=== PATIENT | female | born 1945 | race Caucasian/White ===

== ENCOUNTER 2018-03-21 03:00 | Outpatient (CLI) | payer MEDICARE, OTHER | END 2018-03-21 03:01 | disposition EMS.NT | LOC: EMS 03:00 | PROVIDERS: ATTEND Surgery | DX: R07.81 Pleurodynia (principal) ==

== ENCOUNTER 2018-10-26 09:15 | Outpatient (CLI) | payer MEDICARE, OTHER | END 2018-10-26 09:16 | disposition home or self-care (01) | LOC: DI 09:15 | PROVIDERS: ATTEND Family Medicine | DX: I48.91 Unspecified atrial fibrillation (principal); I48.92 Unspecified atrial flutter; I35.0 Nonrheumatic aortic (valve) stenosis; I34.0 Nonrheumatic mitral (valve) insufficiency | CPT/HCPCS: 93306 ==

== ENCOUNTER 2018-12-23 15:00 | Outpatient (CLI) | payer MEDICARE, OTHER ==
[2018-12-23 15:34] LABS: CALCIUM 8.9 mg/dL (8.5-10.3); CREATININE 1.1 mg/dL (0.4-1.0)
== END 2018-12-23 15:01 | disposition home or self-care (01) ==
LOC: LAB 15:00
PROVIDERS: ATTEND Internal Medicine Interventional Cardiology
DX: I48.1 Persistent atrial fibrillation (principal)
CPT/HCPCS: 36415; 80048

== ENCOUNTER 2019-06-14 23:39 | Outpatient (CLI) | payer MEDICARE, OTHER | END 2019-06-14 23:40 | disposition critical access hospital (66) | LOC: EMS 23:39 | PROVIDERS: ATTEND Surgery | DX: R06.02 Shortness of breath (principal); L50.9 Urticaria, unspecified; R11.0 Nausea; R55 Syncope and collapse | CPT/HCPCS: A0425; A0427 ==

== ENCOUNTER 2019-06-15 00:14 | Emergency (ER) | payer MEDICARE, OTHER ==
[2019-06-15] MEDS ORDERED: FAMOTIDINE 20 MG/2 ML VIAL IVP STA (00:33)
--- NOTE | 2019-06-15 00:35 | ED Physician Documentation ---
History of Present Illness - Stated complaint Stated Complaint: ALLERGIC REACTION - Chief complaint Chief Complaint: Allergic Rx - History obtained from History obtained from: Patient - History of Present Illness Timing: Prior to arrival - Additonal information Additional information: This is a 74-year-old woman who presents with complaints that she had an jan rgic reaction to something that she is not sure what it was. Around 930 tonight she developed hives by 10:00 they were all over her body and her face started swelling she was short of breath she called the EMS about 20 minutes later they arrived and gave her 0.3 mg of epi subcu followed by 50 of Benadryl 125 mg of Solu-Medrol. Her facial swelling is improving and she is feeling a little bit better but still mildly nauseous and she feels very fatigued. She did take a Claritin tablet Just after the hives started. Patient does have a history of a similar reaction to shellfish exposure in the past and she did eat salmon tonight that was brought out of the grocery case at the store. Review of Systems Unable to obtain: Other (Acute presentation with anaphylaxis.) Constitutional: reports: Fatigue. denies: Fever Cardiac: denies: Chest pain / pressure Respiratory: reports: Dyspnea. denies: Cough GI: reports: Nausea. denies: Abdominal Pain Skin: reports: Rash (Extensive hives) PD PAST MEDICAL HISTORY - Present Medications Home Medications: Ambulatory Orders Medication Instructions Recorded Confirmed Cholecalciferol (Vitamin D3) 1,000 unit PO DAILY 06/15/19 06/15/19 [Vitamin D3] Epinephrine [Auvi-Q] 0.3 mg IJ ONCE PRN #2 auto.injct 06/15/19 Famotidine [Pepcid] 20 mg PO BID #10 tablet 06/15/19 Hydrocodone/Acetaminophen [Vicodin 1 each PO DAILY 06/15/19 06/15/19 5-300 mg Tablet] Melatonin 10 mg PO DAILY 06/15/19 06/15/19 Metoprolol Succinate [Toprol Xl] 12.5 mg PO DAILY 06/15/19 06/15/19 Pantoprazole [Protonix] 40 mg PO BID 06/15/19 06/15/19 Prazosin HCl 2 mg PO DAILY 06/15/19 06/15/19 Vitamin E 400 unit PO DAILY 06/15/19 06/15/19 buPROPion HCl [Bupropion HCl Sr] 200 mg PO DAILY 06/15/19 06/15/19 predniSONE [Prednisone] 60 mg PO DAILY #12 tablet 06/15/19 - Allergies Allergies/Adverse Reactions: Allergies Allergy/AdvReac Type Severity Reaction Status Date / Time shellfish derived Allergy Anaphylaxis Verified 06/15/19 00:32 PD ED PE NORMAL - Vitals Vital signs reviewed: Yes - General General: Alert and oriented X 3, No acute distress, Well developed/nourished - HEENT HEENT: Atraumatic, PERRL, Other (Her mucous membranes are very dry. Her bottom lip is very swollen and her eyelids are as well. Little facial edema that seems to have been improving per the EMS.) - Neck Neck: Supple, no meningeal sign - Cardiac Cardiac: RRR, No murmur - Respiratory Respiratory: No respiratory distress, Clear bilaterally - Abdomen Abdomen: Normal bowel sounds, Soft, Non tender - Derm Derm: Other (Hives scattered across her face arms chest and abdomen.) - Extremities Extremities: No edema - Neuro Neuro: Alert and oriented X 3, Other Results - Vitals Vitals: Vital Signs - 24 hr 06/15/19 06/15/19 06/15/19 00:12 00:31 00:53 Temperature 36.8 C Heart Rate 54 L 58 L 50 L Respiratory 22 12 16 Rate Blood Pressure 143/68 H 138/58 H O2 Saturation 99 97 97 06/15/19 06/15/19 06/15/19 01:23 01:53 02:23 Temperature Heart Rate 58 L 54 L 56 L Respiratory 15 15 17 Rate Blood Pressure 124/50 L 135/61 H 135/61 H O2 Saturation 96 94 95 06/15/19 06/15/19 03:00 03:30 Temperature Heart Rate 53 L 54 L Respiratory 14 14 Rate Blood Pressure 125/83 H 127/96 H O2 Saturation 94 95 Oxygen O2 Source Room air - Labs Labs: Laboratory Tests 06/15/19 06/15/19 00:44 00:44 WBC 14.4 H RBC 4.92 Hgb 15.1 Hct 47.3 H MCV 96.1 MCH 30.7 MCHC 31.9 L RDW 13.9 Plt Count 303 MPV 9.5 Neut # (Auto) 12.0 H Lymph # (Auto) 1.6 [place] # (Auto) 0.6 Eos # (Auto) 0.1 Baso # (Auto) 0.1 Absolute Nucleated RBC 0.00 Nucleated RBC % 0.0 Sodium 139 Potassium 4.6 Chloride 106 Carbon Dioxide 24 Anion Gap 9.0 BUN 29 H Creatinine 1.1 H Estimated GFR (MDRD) 49 L Glucose 137 H Calcium 8.5 PD MEDICAL DECISION MAKING - ED course Complexity details: d/w patient ED course: We went through an exhaustive catalog of her day-to-day trying to figure out what might of precipitated this and I think the most possible explanation is that the salmon she brought out of the grocery case was contaminated with shellfish as she is had a similar reaction to shellfish exposure in the past. 0351: Patient was sleeping. I checked in on her once after the Pepcid and she was improving. Now her lip is still little bit swollen but she hives are essentially gone. She does not feel short of breath or nauseous and she had no vomiting. Plan is to discharge her home. I went ahead and gave her her first dose of prednisone. She will be placed on prednisone for the next 4 days, instructed to use Benadryl every 6 hours for the next 48 hours as well as Pepcid twice a day. She is given a prescription for an EpiPen told to fill it as soon as possible and to be very cautious with the ingestion of anything that might of coming contact with shellfish in the future. Departure - Departure Disposition: 01 Home, Self Care Clinical Impression: Anaphylactic reaction Qualifiers: Encounter type: initial encounter Qualified Code(s): T78.2XXA - Anaphylactic shock, unspecified, initial encounter Condition: Good Instructions: ED Allergic Reaction General Other Follow-Up: Tima Boggs MD [Primary Care Provider] - Prescriptions: Epinephrine [Auvi-Q] 0.3 mg IJ ONCE PRN #2 auto.injct PRN Reason: Anaphylaxis Famotidine [Pepcid] 20 mg PO BID #10 tablet predniSONE [Prednisone] 60 mg PO DAILY #12 tablet Comments: Take the prednisone 3 tablets daily for the next 4 days. Take Benadryl 1 to 2 tablets every 6 hours [id number] for the next [address] operate machinery if taking that medication because it can make you sleepy. Take Pepcid twice a day as prescribed for the next 48 hours. You have a prescription for EpiPen if needed for further anaphylactic symptoms. You should keep a current, unexpired EpiPen with you at all times in the future. Make every effort to avoid any potential contact with shellfish products in the future. Follow-up with your primary care provider as needed.
[2019-06-15 00:49] LABS: BASOPHILS # (AUTO) 0.1 10^3/uL (0.0-0.1); BASOPHILS % (AUTO) 0.3 %; EOSINOPHILS # (AUTO) 0.1 10^3/uL (0.0-0.7); EOSINOPHILS % (AUTO) 0.8 %; HGB - HEMOGLOBIN 15.1 g/dL (12.0-16.0); LYMPHOCYTES # (AUTO) 1.6 10^3/uL (1.5-3.5); LYMPHOCYTES % (AUTO) 11.2 %; MEAN CORPUSCULAR HEMOGLOBIN 30.7 pg (27.0-31.0); MEAN CORPUSCULAR HGB CONC 31.9 g/dL (32.0-36.0); MEAN CORPUSCULAR VOLUME 96.1 fL (81.0-99.0); MEAN PLATELET VOLUME 9.5 fL (7.9-10.8); MONOCYTES # (AUTO) 0.6 10^3/uL (0.0-1.0); MONOCYTES % (AUTO) 3.8 %; NEUTROPHILS % (AUTO) 83.3 %; PLT - PLATELET COUNT 303 10^3/uL (130-450); RED BLOOD COUNT 4.92 10^6/uL (4.20-5.40); RED CELL DISTRIBUTION WIDTH 13.9 % (12.0-15.0); WHITE BLOOD COUNT 14.4 x10^3/uL (4.8-10.8)
[2019-06-15 00:57] LABS: CALCIUM 8.5 mg/dL (8.5-10.3); CREATININE 1.1 mg/dL (0.4-1.0)
[2019-06-15] MEDS ORDERED: predniSONE 20 MG TABLET PO STA (03:50)
[2019-06-15 04:08] VITALS: BP 153/78
== END 2019-06-15 05:40 | disposition home or self-care (01) ==
LOC: EDUNIT# → ED 00:14
DX: T78.2XXA Anaphylactic shock, unspecified, initial encounter (principal); X58.XXXA Exposure to other specified factors, initial encounter; Z91.013 Allergy to seafood
CPT/HCPCS: 36415; 80048; 85025; 96374; 99284; J7512

== ENCOUNTER 2021-08-22 00:43 | Outpatient (CLI) | payer MEDICARE, OTHER | END 2021-08-22 00:44 | disposition EMS.NT | LOC: EMS 00:43 | DX: R07.9 Chest pain, unspecified (principal) ==

== ENCOUNTER 2021-08-22 09:33 | Emergency (ER) | payer MEDICARE, OTHER ==
--- NOTE | 2021-08-22 10:07 | XRAY Report ---
PROCEDURE: Chest 1 View X-Ray INDICATIONS: Chest Pain TECHNIQUE: One view of the chest was acquired. COMPARISON: None. FINDINGS: SUPPORT DEVICES: None. LUNG/PLEURA: A 4.8 x 4.4 cm density projects over the left lower lung zone. The remaining lung zones well aerated. No pleural effusion or space-occupying pneumothorax. MEDIASTINUM: The cardiomediastinal silhouette is within normal limits. BONES/SOFT TISSUES: No acute abnormality. IMPRESSION: 1.Ovoid density projecting over the left lower lung zone, concerning for lung or soft tissue mass. Co nsider CT imaging for further evaluation. Reviewed by: Fausto Urrutia MD on 08/22/2021 10:06 AM PDT Approved by: Fausto Urrutia MD on 08/22/2021 10:06 AM PDT Station ID: [id number]
[2021-08-22 10:11] LABS: BASOPHILS # (AUTO) 0.1 10^3/uL (0.0-0.1); BASOPHILS % (AUTO) 0.6 %; EOSINOPHILS # (AUTO) 0.2 10^3/uL (0.0-0.7); EOSINOPHILS % (AUTO) 2.5 %; HCT - HEMATOCRIT 43.2 % (37.0-47.0); LYMPHOCYTES # (AUTO) 1.7 10^3/uL (1.5-3.5); LYMPHOCYTES % (AUTO) 18.9 %; MEAN CORPUSCULAR HEMOGLOBIN 30.4 pg (27.0-31.0); MEAN CORPUSCULAR HGB CONC 32.4 g/dL (32.0-36.0); MEAN CORPUSCULAR VOLUME 93.7 fL (81.0-99.0); MEAN PLATELET VOLUME 9.8 fL (7.9-10.8); MONOCYTES # (AUTO) 0.8 10^3/uL (0.0-1.0); MONOCYTES % (AUTO) 8.5 %; NEUTROPHILS # (AUTO) 6.3 10^3/uL (1.5-6.6); NEUTROPHILS % (AUTO) 69.2 %; PLT - PLATELET COUNT 255 10^3/uL (130-450); RED BLOOD COUNT 4.61 10^6/uL (4.20-5.40); RED CELL DISTRIBUTION WIDTH 13.6 % (12.0-15.0); WHITE BLOOD COUNT 9.1 x10^3/uL (4.8-10.8)
[2021-08-22 10:26] LABS: ALBUMIN/GLOBULIN RATIO 1.4 (1.0-2.2); CALCIUM 9.4 mg/dL (8.5-10.3); CREATININE 1.1 mg/dL (0.4-1.0); POTASSIUM 4.8 mmol/L (3.5-5.0); TOTAL PROTEIN 6.9 g/dL (6.7-8.2)
--- NOTE | 2021-08-22 10:42 | ED Physician Documentation ---
PD HPI CHEST PAIN - Stated complaint Stated Complaint: CHEST PX - Chief complaint Chief Complaint: Cardiac - History obtained from History obtained from: Patient - Additional information Additional information: 76-year-old female with a 2-day history of pain mostly at night in the left chest. She is found this to be positionally related and is worse with a deep inspiration parent. She does not know of any injury to her chest. She finds it when she is sleeping in the right lateral decubitus position that she experiences the pain more. She has not been ill recently. Review of Systems Constitutional: denies: Fever Eyes: denies: Decreased vision Ears: denies: Ear pain Nose: denies: Congestion Throat: denies: Sore throat Cardiac: reports: Chest pain / pressure. 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 : None Psych: Depression Musculoskeletal: Other Derm: None Other Past Medical History: chronic joint pain - Past Surgical History Past Surgical History: Yes Ortho: Hip replacement /REPAIRER SWITCHGEAR: Hysterectomy - Present Medications Home Medications: Ambulatory Orders Medication Instructions Recorded Confirmed Cholecalciferol (Vitamin D3) 1,000 unit PO DAILY 06/15/19 08/22/21 [Vitamin D3] Pantoprazole [Protonix] 40 mg PO DAILY 06/15/19 08/22/21 Prazosin HCl 1 mg PO DAILY 06/15/19 08/22/21 buPROPion HCL [Bupropion HCl Sr] 300 mg PO DAILY 06/15/19 08/22/21 Albuterol Sulf [Ventolin Hfa 1 - 2 puffs INH Q4HR PRN 08/22/21 08/22/21 Inhaler] Apixaban [Eliquis] 5 mg ORAL BID 08/22/21 08/22/21 Atorvastatin Calcium 40 mg PO HS 08/22/21 08/22/21 Fluticasone [Flonase] 1 sprays DAVID DAILY 08/22/21 08/22/21 HYDROcod/ACETAM 5/325 [[place] 5/325] 1 - 2 tablet PO Q6H PRN #14 tablet 08/22/21 Lactobacillus Combination No.4 1 each PO DAILY 08/22/21 08/22/21 [Probiotic] Lisinopril [Zestril] 20 mg PO DAILY 08/22/21 08/22/21 Multivitamin [Theragran] 1 each PO DAILY 08/22/21 08/22/21 [place]-3/Dha/Epa/Fish Oil [Fish Oil 3 cap PO DAILY 08/22/21 08/22/21 1,000 mg Softgel] Tiotropium [place] [Spiriva] 1 puffs INH DAILY 08/22/21 08/22/21 - Allergies Allergies/Adverse Reactions: Allergies Allergy/AdvReac Type Severity Reaction Status Date / Time shellfish derived Allergy Anaphylaxis Verified 08/22/21 09:51 - Social History Does the pt smoke?: No Smoking Status: Never smoker Does the pt drink ETOH?: No Does the pt have substance abuse?: No - Immunizations Immunizations are current?: Yes PD ED PE NORMAL - Vitals Vital signs reviewed: Yes (hypertensive ) - General General: Alert and oriented X 3, No acute distress, Well developed/nourished - HEENT HEENT: Atraumatic, PERRL, EOMI - Neck Neck: Supple, no meningeal sign, No bony TTP - Cardiac Cardiac: RRR, No murmur, Other (palpation of left sterno-costal area reproduces the pain the patient is presenting with. ) - Respiratory Respiratory: No respiratory distress, Clear bilaterally - Abdomen Abdomen: Soft, Non tender - Back Back: No CVA TTP, No spinal TTP - Derm Derm: Normal color, Warm and dry, No rash - Extremities Extremities: No deformity, No edema - Neuro Neuro: Alert and oriented X 3, [place] 2-12 intact, No motor deficit, No sensory deficit, Normal speech Eye Opening: Spontaneous Motor: Obeys Commands Verbal: Oriented GCS Score: 15 - Psych Psych: Normal mood, Normal affect Results - Vitals Vitals: Vital Signs - 24 hr 08/22/21 08/22/21 09:46 10:04 Temperature 36.3 C L Heart Rate 57 L 56 L Respiratory 18 18 Rate Blood Pressure 195/72 H 153/58 H O2 Saturation 99 98 Oxygen O2 Source Room air - EKG (time done) 0940 Rate: Rate (enter#) (56) Rhythm: NSR Ischemia: Normal ST segments Compare to prior EKG: Unchanged from prior EKG (/SPT 12/09/2014 no changes) Computer interpretation: Agree with computer - Labs Labs: Laboratory Tests 08/22/21 08/22/21 08/22/21 09:50 09:50 09:50 WBC 9.1 RBC 4.61 Hgb 14.0 Hct 43.2 MCV 93.7 MCH 30.4 MCHC 32.4 RDW 13.6 Plt Count 255 MPV 9.8 Neut # (Auto) 6.3 Lymph # (Auto) 1.7 [place] # (Auto) 0.8 Eos # (Auto) 0.2 Baso # (Auto) 0.1 Absolute Nucleated RBC 0.00 Nucleated RBC % 0.0 Sodium 136 Potassium 4.8 Chloride 104 Carbon Dioxide 23 Anion Gap 9.0 BUN 27 H Creatinine 1.1 H Estimated GFR (MDRD) 49 L Glucose 124 H Calcium 9.4 Total Bilirubin 1.0 AST 19 ALT 20 Alkaline Phosphatase 57 Troponin I High Sens 6.9 Total Protein 6.9 Albumin 4.0 Globulin 2.9 Albumin/Globulin Ratio 1.4 Lipase 23 - Rads (name of study) chest Radiology: Prelim report reviewed (Impression: 1. Ovoid density projecting over the left lower lung zone, concerning for lung or soft tissue mass. Consider CT imaging for further evaluation.), EMP read indepedently, See rad report chest CT Radiology: Prelim report reviewed, Discussed with rads (Discussed with Maria De Jesus Dillard normal glandular breast tissue. ), EMP read indepedently (? mass in left breast), See rad report (Impression: No significant abnormality. ) PD MEDICAL DECISION MAKING - ED course Complexity details: reviewed results, re-evaluated patient, considered differential, d/w patient ED course: 76-year-old female with chest wall pain has modifiable factors with deep breathing movement and position. She has reproducible symptoms with direct palpation of the chest wall. We did do a chest x-ray of the patient which demonstrated some abnormality in the left lower chest and a CT scan of the abdomen of the chest was obtained and this demonstrated no significant abnormalities. I was concerned about the appearance of a mass in the left breast I discussed this with the radiologist here and she reassured me this is normal glandular breast tissue. The patient has had a recent mammogram. She responds to treatment with decadron and toradal. Departure - Departure Disposition: 01 Home, Self Care Clinical Impression: Chest wall pain Condition: Stable Instructions: ED Chest Pain Costochondritis Follow-Up: Tima Boggs MD [Primary Care Provider] - Prescriptions: HYDROcod/ACETAM 5/325 [[place] 5/325] 1 - 2 tablet PO Q6H PRN #14 tablet PRN Reason: Pain
[2021-08-22] MEDS ORDERED: DEXAMETHASONE 10 MG/ML VIAL IVP STA (10:53)
[2021-08-22] MEDS ORDERED: KETOROLAC 30 MG/ML VIAL IVP STA (10:53)
[2021-08-22] MEDS ORDERED: IOVERSOL 320 100 ML VIAL IVP ONE ×2 (11:05→11:28)
--- NOTE | 2021-08-22 11:44 | CT Report ---
PROCEDURE: CHEST W INDICATIONS: ? mass in left chest CONTRAST: IV CONTRAST: Optiray 320 ml: 100 PO CONTRAST: *NO PO CONTRAST TECHNIQUE: After the administration of intravenous contrast, 1 mm axial images were acquired from the pulmonary apices through the posterior costophrenic angles. Axial 5 mm soft tissue kernel reconstructions were performed as well as 8 mm axial MIP and coronal and sagittal 5 mm reformations. For radiation dose reduction, the following was used: automated exposure control, adjustment of mA and/or kV according to patient size. COMPARISON: Reference is made to the chest radiograph of same day. FINDINGS: CT CHEST: Thyroid: Homogeneous. Vasculature: The thoracic aorta and arch vasculature have a normal contrasted appearance and are norm al size and contour. No evidence for dissection. Calcified atheromatous change of the aortic arch. Heart: No cardiomegaly or significant pericardial effusion. Mediastinum: No pathologic lymph node enlargement by size criteria. Lung/pleura: No pleural effusion, consolidation, or pneumothorax. Bibasilar streaky densities, likely reflecting atelectasis/scarring. No suspicious pulmonary masses or nodules are seen. Tracheobronchial tree: Patent. Upper abdomen: No significant abnormality. Trace hiatal hernia. Bones: No acute osseous abnormality. L1 superior endplate irregularity, likely reflecting a Schmorl's node. Moderate disc height loss at L2-3 with sclerosis of the endplates. Chest wall: The chest wall and axilla are within normal limits. IMPRESSION: 1.No significant abnormality. Reviewed by: Fausto Urrutia MD on 08/22/2021 11:43 AM PDT Approved by: Fausto Urrutia MD on 08/22/2021 11:43 AM PDT Station ID: [id number]
[2021-08-22 12:28] VITALS: BP 170/72
== END 2021-08-22 12:36 | disposition home or self-care (01) ==
LOC: ED 09:33
DX: R07.89 Other chest pain (principal); I10 Essential (primary) hypertension; E78.00 Pure hypercholesterolemia, unspecified; I48.91 Unspecified atrial fibrillation; G47.30 Sleep apnea, unspecified; K21.9 Gastro-esophageal reflux disease without esophagitis; F32.9 Major depressive disorder, single episode, unspecified; G89.29 Other chronic pain; M25.50 Pain in unspecified joint; Z79.01 Long term (current) use of anticoagulants; Z79.899 Other long term (current) drug therapy
CPT/HCPCS: 36415; 71045; 71260; 80053; 83690; 84484; 85025; 93005; 96374; 99284; Q9967

== ENCOUNTER 2021-09-08 14:15 | Emergency (ER) | payer MEDICARE, OTHER ==
[2021-09-08 14:40] VITALS: BP 137/91
[2021-09-08 15:53] LABS: BASOPHILS # (AUTO) 0.1 10^3/uL (0.0-0.1); BASOPHILS % (AUTO) 0.9 %; EOSINOPHILS # (AUTO) 0.3 10^3/uL (0.0-0.7); EOSINOPHILS % (AUTO) 3.4 %; HCT - HEMATOCRIT 44.5 % (37.0-47.0); HGB - HEMOGLOBIN 14.5 g/dL (12.0-16.0); LYMPHOCYTES # (AUTO) 1.7 10^3/uL (1.5-3.5); LYMPHOCYTES % (AUTO) 22.7 %; MEAN CORPUSCULAR HEMOGLOBIN 30.6 pg (27.0-31.0); MEAN CORPUSCULAR HGB CONC 32.6 g/dL (32.0-36.0); MEAN CORPUSCULAR VOLUME 93.9 fL (81.0-99.0); MEAN PLATELET VOLUME 9.7 fL (7.9-10.8); MONOCYTES # (AUTO) 0.7 10^3/uL (0.0-1.0); MONOCYTES % (AUTO) 8.6 %; NEUTROPHILS # (AUTO) 4.8 10^3/uL (1.5-6.6); NEUTROPHILS % (AUTO) 64.1 %; PLT - PLATELET COUNT 293 10^3/uL (130-450); RED BLOOD COUNT 4.74 10^6/uL (4.20-5.40); RED CELL DISTRIBUTION WIDTH 13.7 % (12.0-15.0); WHITE BLOOD COUNT 7.5 x10^3/uL (4.8-10.8)
[2021-09-08 16:04] LABS: ALBUMIN 4.1 g/dL (3.2-5.5); ALBUMIN/GLOBULIN RATIO 1.4 (1.0-2.2); ALKALINE PHOSPHATASE 61 IU/L (42-121); ALT ALANINE AMINOTRANSFERASE 18 IU/L (10-60); AST ASPARTATE AMINOTRANSFERASE 11 IU/L (10-42); BILIRUBIN,TOTAL 0.9 mg/dL (0.2-1.0); BUN - BLOOD UREA NITROGEN 26 mg/dL (6-20); CALCIUM 9.6 mg/dL (8.5-10.3); CARBON DIOXIDE - CO2 24 mmol/L (21-32); CHLORIDE 102 mmol/L (101-111); CREATININE 1.1 mg/dL (0.4-1.0); ETOH - ETHANOL < 5.0 mg/dL; GFR - MDRD 49 (>89); GLUCOSE 110 mg/dL (70-100); POTASSIUM 4.6 mmol/L (3.5-5.0); SODIUM 135 mmol/L (135-145)
--- NOTE | 2021-09-08 16:11 | XRAY Report ---
PROCEDURE: Chest 2 View X-Ray INDICATIONS: cough TECHNIQUE: 2 view(s) of the chest. COMPARISON: August 22, 2021 FINDINGS: SUPPORT DEVICES: None. LUNGS/PLEURA: Coarsened interstitial markings. No focal consolidation, pleural effusion or space-occu pying pneumothorax. MEDIASTINUM: The cardiomediastinal silhouette is within normal limits. BONES/SOFT TISSUES: No acute abnormality. IMPRESSION: 1.No acute cardiopulmonary abnormality. Reviewed by: Fausto Urrutia MD on 09/08/2021 4:09 PM PDT Approved by: Fausto Urrutia MD on 09/08/2021 4:09 PM PDT Station ID: [id number]
[2021-09-08 16:49] LABS: CORONAVIRUS 229E-RESP PCR NOT DETECTED; CORONAVIRUS HKU1-RESP PCR NOT DETECTED; CORONAVIRUS NL63-RESP PCR NOT DETECTED; CORONAVIRUS OC43-RESP PCR NOT DETECTED; HUMAN METAPNEUMOVIRUS NOT DETECTED; SARS-CoV-2 -RESP PCR PANEL NOT DETECTED
[2021-09-08 16:50] LABS: B. PARAPERTUSSIS- RESP PCR PAN NOT DETECTED; B. PERTUSSIS- RESP PCR PANEL NOT DETECTED; C. PNEUMONIAE- RESP PCR PANEL NOT DETECTED; INFLUENZA A- RESP PCR PANEL NOT DETECTED; INFLUENZA B - RESP PCR PANEL NOT DETECTED; M. PNEUMONIAE- RESP PCR PANEL NOT DETECTED; PARAINFLUENZA VIRUS 1 NOT DETECTED; PARAINFLUENZA VIRUS 2 NOT DETECTED; PARAINFLUENZA VIRUS 3 NOT DETECTED; PARAINFLUENZA VIRUS 4 NOT DETECTED; RHINOVIRUS/ENTEROVIRUS NOT DETECTED; RSV- RESP PCR PANEL NOT DETECTED
--- NOTE | 2021-09-08 19:58 | ED Physician Documentation ---
History of Present Illness - Stated complaint Stated Complaint: SOA,CONGESTION - Chief complaint Chief Complaint: General - Additonal information Additional information: 76-year-old female presenting with cough, congestion and feeling unwell at home. Reports symptoms ongoing for the last several days. States is fully vaccinated against the novel coronavirus. Chest pain, shortness of breath, abdominal pain. Review of Systems Ten Systems: 10 systems reviewed and negative Constitutional: denies: Fever, Chills Nose: reports: Congestion Cardiac: denies: Chest pain / pressure Respiratory: reports: Cough. 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 : None Psych: Depression Musculoskeletal: Other Derm: None - Past Surgical History Past Surgical History: Yes Ortho: Hip replacement /ADMINISTRATIVE ANALYST: Hysterectomy - Present Medications Home Medications: Ambulatory Orders Medication Instructions Recorded Confirmed Cholecalciferol (Vitamin D3) 1,000 unit PO DAILY 06/15/19 08/22/21 [Vitamin D3] Pantoprazole [Protonix] 40 mg PO DAILY 06/15/19 08/22/21 Prazosin HCl 1 mg PO DAILY 06/15/19 08/22/21 buPROPion HCL [Bupropion HCl Sr] 300 mg PO DAILY 06/15/19 08/22/21 Albuterol Sulf [Ventolin Hfa 1 - 2 puffs INH Q4HR PRN 08/22/21 08/22/21 Inhaler] Apixaban [Eliquis] 5 mg ORAL BID 08/22/21 08/22/21 Atorvastatin Calcium 40 mg PO HS 08/22/21 08/22/21 Fluticasone [Flonase] 1 sprays DAVID DAILY 08/22/21 08/22/21 HYDROcod/ACETAM 5/325 [[place] 5/325] 1 - 2 tablet PO Q6H PRN #14 tablet 08/22/21 Lactobacillus Combination No.4 1 each PO DAILY 08/22/21 08/22/21 [Probiotic] Lisinopril [Zestril] 20 mg PO DAILY 08/22/21 08/22/21 Multivitamin [Theragran] 1 each PO DAILY 08/22/21 08/22/21 [place]-3/Dha/Epa/Fish Oil [Fish Oil 3 cap PO DAILY 08/22/21 08/22/21 1,000 mg Softgel] Tiotropium [place] [Spiriva] 1 puffs INH DAILY 08/22/21 08/22/21 - Allergies Allergies/Adverse Reactions: Allergies Allergy/AdvReac Type Severity Reaction Status Date / Time shellfish derived Allergy Anaphylaxis Verified 09/08/21 14:40 - Social History Does the pt smoke?: No Smoking Status: Never smoker Does the pt drink ETOH?: No Does the pt have substance abuse?: No - Immunizations Immunizations are current?: Yes - POLST Patient has POLST: No PD ED PE NORMAL - Vitals Vital signs reviewed: Yes - General General: Alert and oriented X 3 - HEENT HEENT: Atraumatic - Neck Neck: Supple, no meningeal sign - Cardiac Cardiac: RRR, No gallop, No rub - Respiratory Respiratory: No respiratory distress - Abdomen Abdomen: Normal bowel sounds - Neuro Neuro: Alert and oriented X 3, hardware technician 2-12 intact, No motor deficit, No sensory deficit Results - Vitals Vitals: Vital Signs - 24 hr 09/08/21 14:32 Temperature 36.5 C Heart Rate 62 Respiratory 16 Rate Blood Pressure 137/91 H O2 Saturation 98 Oxygen O2 Source Room air - EKG (time done) 1546 Rate: Rate (enter#) (95) Rhythm: Atrial fibrillation [place]: Normal QRS: Normal Ischemia: Normal ST segments Computer interpretation: Agree with computer - Labs Labs: Laboratory Tests 09/08/21 09/08/21 09/08/21 15:40 15:43 15:43 WBC 7.5 RBC 4.74 Hgb 14.5 Hct 44.5 MCV 93.9 MCH 30.6 MCHC 32.6 RDW 13.7 Plt Count 293 MPV 9.7 Neut # (Auto) 4.8 Lymph # (Auto) 1.7 [place] # (Auto) 0.7 Eos # (Auto) 0.3 Baso # (Auto) 0.1 Absolute Nucleated RBC 0.00 Nucleated RBC % 0.0 Sodium 135 Potassium 4.6 Chloride 102 Carbon Dioxide 24 Anion Gap 9.0 BUN 26 H Creatinine 1.1 H Estimated GFR (MDRD) 49 L Glucose 110 H Lactic Acid Calcium 9.6 Total Bilirubin 0.9 AST 11 ALT 18 Alkaline Phosphatase 61 B-Natriuretic Peptide Total Protein 7.0 Albumin 4.1 Globulin 2.9 Albumin/Globulin Ratio 1.4 Nasal Adenovirus (PCR) NOT DETECTED Nasal B. parapertussis DNA (PCR) NOT DETECTED Nasal Coronavir 229E PCR NOT DETECTED Nasal Coronavir HKU1 PCR NOT DETECTED Nasal Coronavir NL63 PCR NOT DETECTED Nasal Coronavir OC43 PCR NOT DETECTED Nasal Enterovir/Rhinovir PCR NOT DETECTED Nasal Influenza B PCR NOT DETECTED Nasal Influenza A PCR NOT DETECTED Nasal Parainfluen 1 PCR NOT DETECTED Nasal Parainfluen 2 PCR NOT DETECTED Nasal Parainfluen 3 PCR NOT DETECTED Nasal Parainfluen 4 PCR NOT DETECTED Nasal RSV (PCR) NOT DETECTED Nasal B.pertussis DNA PCR NOT DETECTED Nasal C.pneumoniae (PCR) NOT DETECTED [place] Human Metapneumo PCR NOT DETECTED Nasal M.pneumoniae (PCR) NOT DETECTED Nasal SARS-CoV-2 (PCR) NOT DETECTED Ethyl Alcohol < 5.0 09/08/21 09/08/21 15:43 15:43 WBC RBC Hgb Hct MCV MCH MCHC RDW Plt Count MPV Neut # (Auto) Lymph # (Auto) [place] # (Auto) Eos # (Auto) Baso # (Auto) Absolute Nucleated RBC Nucleated RBC % Sodium Potassium Chloride Carbon Dioxide Anion Gap BUN Creatinine Estimated GFR (MDRD) Glucose Lactic Acid 0.9 Calcium Total Bilirubin AST ALT Alkaline Phosphatase B-Natriuretic Peptide 123 H Total Protein Albumin Globulin Albumin/Globulin Ratio Nasal Adenovirus (PCR) Nasal B. parapertussis DNA (PCR) Nasal Coronavir 229E PCR Nasal Coronavir HKU1 PCR Nasal Coronavir NL63 PCR Nasal Coronavir OC43 PCR Nasal Enterovir/Rhinovir PCR Nasal Influenza B PCR Nasal Influenza A PCR Nasal Parainfluen 1 PCR Nasal Parainfluen 2 PCR Nasal Parainfluen 3 PCR Nasal Parainfluen 4 PCR Nasal RSV (PCR) Nasal B.pertussis DNA PCR Nasal C.pneumoniae (PCR) [place] Human Metapneumo PCR Nasal M.pneumoniae (PCR) Nasal SARS-CoV-2 (PCR) Ethyl Alcohol PD MEDICAL DECISION MAKING - ED course ED course: To the emergency department with report of feeling generally unwell at home for the last few days. Patient afebrile, hemodynamically stable on arrival to the emergency department. Generally reassuring nontoxic physical exam. Chest c lear. Obtained was negative. Labs negative. EKG demonstrated rate controlled A. fib. Patient has a known history of A. fib and currently takes anticoagulation. She did elect to leave the emergency department abruptly prior to the completion of her evaluation. This occurred prior to my ability to discuss her findings with her. Nursing staff reported that she was encouraged to return to the emergency department for any new or worsening symptoms. Departure - Departure Disposition: 01 Home, Self Care Clinical Impression: Bronchitis Discharge Date/Time: 09/08/21 18:27
== END 2021-09-08 18:27 | disposition home or self-care (01) ==
LOC: ED 14:15
DX: J40 Bronchitis, not specified as acute or chronic (principal); Z20.822 Contact with and (suspected) exposure to COVID-19; I10 Essential (primary) hypertension; I48.91 Unspecified atrial fibrillation; Z79.01 Long term (current) use of anticoagulants
CPT/HCPCS: 36415; 71046; 80053; 83605; 83880; 85025; 87631; 93005; 99282; 99284; G0480; 0202U; 80320

== ENCOUNTER 2022-01-13 09:29 | Emergency (ER) | payer MEDICARE, OTHER ==
[2022-01-13] MEDS ORDERED: SODIUM CHLORIDE 0.9% 1,000 ML IV STA (10:15)
[2022-01-13 10:20] LABS: BASOPHILS % (AUTO) 0.4 %; EOSINOPHILS # (AUTO) 0.1 10^3/uL (0.0-0.7); EOSINOPHILS % (AUTO) 1.1 %; HCT - HEMATOCRIT 44.6 % (37.0-47.0); HGB - HEMOGLOBIN 14.6 g/dL (12.0-16.0); LYMPHOCYTES # (AUTO) 1.4 10^3/uL (1.5-3.5); LYMPHOCYTES % (AUTO) 14.9 %; MEAN CORPUSCULAR HGB CONC 32.7 g/dL (32.0-36.0); MEAN CORPUSCULAR VOLUME 94.7 fL (81.0-99.0); MEAN PLATELET VOLUME 9.7 fL (7.9-10.8); MONOCYTES # (AUTO) 0.4 10^3/uL (0.0-1.0); MONOCYTES % (AUTO) 4.1 %; NEUTROPHILS # (AUTO) 7.5 10^3/uL (1.5-6.6); NEUTROPHILS % (AUTO) 79.3 %; PLT - PLATELET COUNT 265 10^3/uL (130-450); RED BLOOD COUNT 4.71 10^6/uL (4.20-5.40); RED CELL DISTRIBUTION WIDTH 13.7 % (12.0-15.0); WHITE BLOOD COUNT 9.5 x10^3/uL (4.8-10.8)
--- NOTE | 2022-01-13 10:20 | ED Physician Documentation ---
PD HPI CHEST PAIN - Stated complaint Stated Complaint: CHEST/LT ARM PX/HEART RACING - Chief complaint Chief Complaint: Cardiac - History obtained from History obtained from: Patient - History of Present Illness Timing - onset: How many days ago (2) Timing - onset during: Rest Timing - duration: Days (2) Timing - details: Gradual onset, Still present Quality: Sharp, Pain Location: Substernal, Left chest Radiation: Left upper extremity Improved by: Rest Worsened by: Inspiration, Movement, Palpation, Position Associated symptoms: Nausea, Cough (similar to always). No: Shortness of air, Diaphoresis, Vomiting, General Weakness, Palpitations Similar symptoms before: Diagnosis (costochondritis/afib) Recently seen: Not recently seen - Additional information Additional information: Previously well 76-year-old female with a history of atrial fibrillation who is on Eliquis has developed some substernal chest pain about 2 days ago. She has some pain with her left arm as well that is worse if she has it in certain positions. She denies any dyspnea associated with this she indicates that the day prior to onset of symptoms she worked extra hard in her home cleaning in order to avoid having to prepare her taxes. She states that she worked all day long and this was very successful in her not having to prepare her taxes. She indicates that 2 mornings ago she developed pain in the left chest to a very specific area about 1 inch by 2 inches at the margin of the left breast. She has pain in the left arm as well and this is more evident with movement of the arm and a specific position that it is comfortable in. Review of Systems Constitutional: denies: Fever Eyes: denies: Decreased vision Ears: denies: Ear pain Nose: denies: Congestion Throat: denies: Sore throat Cardiac: reports: Chest pain / pressure. denies: Palpitations, Pedal edema, Calf pain Respiratory: reports: Cough (similar to always with scant yellow phlem). denies: Dyspnea GI: reports: Diarrhea. denies: Abdominal Pain, Nausea, Vomiting : denies: Dysuria, Frequency Skin: denies: Rash Musculoskeletal: reports: Extremity pain (left arm pain). denies: Neck pain, Back pain, Extremity swelling Neurologic: denies: Generalized weakness, Focal weakness, Numbness PD PAST MEDICAL HISTORY - Past Medical History Cardiovascular: Hypertension, High cholesterol, Atrial fibrillation Respiratory: Sleep apnea Neuro: None Endocrine/Autoimmune: None GI: GERD KNOTTER: None : None Psych: Depression Musculoskeletal: Other Derm: None - Past Surgical History Past Surgical History: Yes Ortho: Hip replacement /KNOTTER: Hysterectomy - Present Medications Home Medications: Ambulatory Orders Medication Instructions Recorded Confirmed Cholecalciferol (Vitamin D3) 1,000 unit PO DAILY 06/15/19 08/22/21 [Vitamin D3] Pantoprazole [Protonix] 40 mg PO DAILY 06/15/19 08/22/21 Prazosin HCl 1 mg PO DAILY 06/15/19 08/22/21 buPROPion HCL [Bupropion HCl Sr] 300 mg PO DAILY 06/15/19 08/22/21 Albuterol Sulf [Ventolin Hfa 1 - 2 puffs INH Q4HR PRN 08/22/21 08/22/21 Inhaler] Apixaban [Eliquis] 5 mg ORAL BID 08/22/21 08/22/21 Atorvastatin Calcium 40 mg PO HS 08/22/21 08/22/21 Fluticasone [Flonase] 1 sprays DAVID DAILY 08/22/21 08/22/21 HYDROcod/ACETAM 5/325 [[place] 5/325] 1 - 2 tablet PO Q6H PRN #14 tablet 08/22/21 Lactobacillus Combination No.4 1 each PO DAILY 08/22/21 08/22/21 [Probiotic] Lisinopril [Zestril] 20 mg PO DAILY 08/22/21 08/22/21 Multivitamin [Theragran] 1 each PO DAILY 08/22/21 08/22/21 [place]-3/Dha/Epa/Fish Oil [Fish Oil 3 cap PO DAILY 08/22/21 08/22/21 1,000 mg Softgel] Tiotropium [place] [Spiriva] 1 puffs INH DAILY 08/22/21 08/22/21 HYDROcod/ACETAM 5/325 [[place] 5/325] 1 - 2 tablet PO Q6H PRN #14 tablet 01/13/22 - Allergies Allergies/Adverse Reactions: Allergies Allergy/AdvReac Type Severity Reaction Status Date / Time shellfish derived Allergy Anaphylaxis Verified 01/13/22 09:53 - Social History Does the pt smoke?: No Smoking Status: Never smoker Does the pt drink ETOH?: No Does the pt have substance abuse?: No - Immunizations Immunizations are current?: Yes - POLST Patient has POLST: No PD ED PE NORMAL - Vitals Vital signs reviewed: Yes (tachy and hypertensive ) - General General: Alert and oriented X 3, No acute distress, Well developed/nourished - HEENT HEENT: Atraumatic, PERRL, EOMI - Neck Neck: Supple, no meningeal sign - Cardiac Cardiac: No murmur, Other (irregularly irregular rate and rhythm) - Respiratory Respiratory: No respiratory distress, Clear bilaterally, Other (specific point tenderness to the left chest wall/ribs para sternal reproduces the symptoms the patient is experiencing. ) - Abdomen Abdomen: Soft, Non tender - Back Back: No CVA TTP, No spinal TTP - Derm Derm: Normal color, Warm and dry, No rash - Extremities Extremities: No deformity, No edema - Neuro Neuro: Alert and oriented X 3, transitions manager rn 2-12 intact, No motor deficit, No sensory deficit, Normal speech Eye Opening: Spontaneous Motor: Obeys Commands Verbal: Oriented GCS Score: 15 - Psych Psych: Normal mood, Normal affect Results - Vitals Vitals: Vital Signs - 24 hr 01/13/22 01/13/22 01/13/22 09:48 10:30 11:30 Temperature 36.4 C L Heart Rate 104 H 87 85 Respiratory 18 19 15 Rate Blood Pressure 163/98 H 152/89 H 150/83 H O2 Saturation 98 96 97 Oxygen O2 Source Room air - EKG (time done) 0943 Rate: Rate (enter#) (107) Rhythm: Atrial fibrillation Ischemia: ST elevation c/w ischemia (inferior leads possible but not on every complex. ) Compare to prior EKG: Changed from prior EKG ([facility] 08-22-2021 rhythm has changed to afib and potential ST elevation in inferior leads is present on "some complexes" ) Computer interpretation: Agree with computer - Labs Labs: Laboratory Tests 01/13/22 01/13/22 01/13/22 10:07 10:07 10:07 WBC 9.5 RBC 4.71 Hgb 14.6 Hct 44.6 MCV 94.7 MCH 31.0 MCHC 32.7 RDW 13.7 Plt Count 265 MPV 9.7 Neut # (Auto) 7.5 H Lymph # (Auto) 1.4 L [place] # (Auto) 0.4 Eos # (Auto) 0.1 Baso # (Auto) 0.0 Absolute Nucleated RBC 0.00 Nucleated RBC % 0.0 Sodium 137 Potassium 4.3 Chloride 104 Carbon Dioxide 23 Anion Gap 10.0 BUN 23 H Creatinine 1.1 H Estimated GFR (MDRD) 49 L Glucose 127 H Calcium 9.1 Total Bilirubin 0.5 AST 19 ALT 21 Alkaline Phosphatase 53 Troponin I High Sens 5.8 Total Protein 6.4 L Albumin 3.7 Globulin 2.7 Albumin/Globulin Ratio 1.4 Lipase 24 - Rads (name of study) chest Radiology: Prelim report reviewed (Impression: Cardiomegaly and mild congestion. No focal infiltrate, pleural effusions or pneumothorax.), EMP read indepedently, See rad report Procedures - IVC sono (time) 1020 Bedside IVC sono: IVC measures (cm) (1.13), IVC collapsed c insp (cm) (complete), Dehydration (est 1-2 liter deficit) PD MEDICAL DECISION MAKING - ED course Complexity details: reviewed old records, reviewed results, re-evaluated patient, considered differential, d/w patient ED course: 76-year-old female with a history of atrial fibrillation on Eliquis has developed left-sided chest pain and left arm pain that is reproducible with positioning and palpation. She today is in atrial fibrillation with a rapid ventricular rate right around 110. She is found to be dehydrated on interrogation the inferior vena cava and she is administered intravenous saline. Her electrocardiogram is concerning for some ST elevation in the inferior leads but this looks like it is only on some of the complexes. I am concerned this may be artifactual. Her history is consistent with chest wall pain costochondritis related to excessive use of her upper body cleaning in her home. Despite 2 days of chest pain the patient's troponin is negative. Her heart rate improves with use of intravenous saline. She did not require medication for control of her heart rate. I have diagnosed the patient again with costochondritis I believe the reason she has this is excessive use of her upper body related to cleaning in her home. She does have atrial fibrillation and she has rapid rate today. She was found to be dehydrated on interrogation the inferior vena cava and she was administered saline and her heart rate is now controlled. Departure - Departure Disposition: 01 Home, Self Care Clinical Impression: Costochondritis, acute, Dehydration Condition: Stable Instructions: ED Chest Pain Costochondritis, ED Dehydration Follow-Up: Tima Boggs MD [Primary Care Provider] - Prescriptions: HYDROcod/ACETAM 5/325 [[place]us 5/325] 1 - 2 tablet PO Q6H PRN #14 tablet PRN Reason: Pain Comments: Caron, today we found her chest wall to be tender similar to what it was previously when you were diagnosed with costochondritis. I suspect that the left arm pain is similar in nature and that it is worse with movement all consistent with over use. We did find that you are mildly dehydrated we have given you intravenous fluids her heart rate is returned to normal. You are in atrial fibrillation and this is a rhythm you are in periodically. The remainder of testing for your heart were negative. We have e-scribed some pain medication to the [facility] in [place]. In the future if you get in to a cleaning frenzy make certain to rest every 20 minutes for more that 5 minutes.
--- NOTE | 2022-01-13 10:31 | XRAY Report ---
PROCEDURE: Chest 1 View X-Ray INDICATIONS: Chest pain TECHNIQUE: One view of the chest was acquired. COMPARISON: 09/08/2021 FINDINGS: Surgical changes and devices: None. Lungs and pleura: No pleural effusions or pneumothorax. Mild pulmonary vascular congestion is seen. No focal infiltrate. Mediastinum: Mediastinal contours appear normal. Heart size is enlarged. Bones and chest wall: No suspicious bony lesions. Overlying soft tissues appear unremarkable. IMPRESSION: Cardiomegaly and mild congestion. No focal infiltrate, pleural effusion or pneumothorax. Reviewed by: Dariel Guy MD on 01/13/2022 10:30 AM [facility] Approved by: Dariel Guy MD on 01/13/2022 10:30 AM [facility] Station ID: [id number]
[2022-01-13 10:39] LABS: ALBUMIN 3.7 g/dL (3.2-5.5); ALBUMIN/GLOBULIN RATIO 1.4 (1.0-2.2); BILIRUBIN,TOTAL 0.5 mg/dL (0.2-1.0); CALCIUM 9.1 mg/dL (8.5-10.3); CREATININE 1.1 mg/dL (0.4-1.0); POTASSIUM 4.3 mmol/L (3.5-5.0); TOTAL PROTEIN 6.4 g/dL (6.7-8.2)
[2022-01-13] MEDS ORDERED: DEXAMETHASONE 10 MG/ML VIAL IVP STA (10:49)
[2022-01-13] MEDS ORDERED: KETOROLAC 30 MG/ML VIAL IVP STA (10:49)
[2022-01-13 11:36] VITALS: BP 150/83
== END 2022-01-13 11:58 | disposition home or self-care (01) ==
LOC: ED 09:29
DX: E86.0 Dehydration (principal); M94.0 Chondrocostal junction syndrome [Tietze]; I48.20 Chronic atrial fibrillation, unspecified; Z79.01 Long term (current) use of anticoagulants
CPT/HCPCS: 36415; 80053; 83690; 84484; 85025; 93005; 96361; 96374; 96375; 99284

== ENCOUNTER 2022-07-12 04:03 | Outpatient (CLI) | payer MEDICARE, OTHER | END 2022-07-12 04:04 | disposition critical access hospital (66) | LOC: EMS 04:03 | DX: R10.13 Epigastric pain (principal); R06.09 Other forms of dyspnea; I10 Essential (primary) hypertension | CPT/HCPCS: A0425; A0427 ==

== ENCOUNTER 2022-07-12 04:38 | Emergency (ER) | payer MEDICARE, OTHER ==
--- NOTE | 2022-07-12 04:37 | ED Physician Documentation ---
PD HPI ABD PAIN - Stated complaint Stated Complaint: EPIGASTRIC PX - History obtained from History obtained from: Patient, EMS - History of Present Illness Timing - onset: Yesterday Timing - details: Gradual onset, Constant, Waxing and waning Quality: Pain Location: Epigastric Radiation: Chest (midline lower chest) Improved by: Other (no ameliorating factors) Worsened by: Breathing, Palpation Associated symptoms: No: Fever, Nausea, Vomiting, Diarrhea, Constipation, Melena, Hematochezia, Dysuria Similar symptoms before: Has not had sx before Recently seen: Not recently seen - Additional information Additional information: BIBA. Patient was hiking yesterday at noon, developed mild dyspnea and epigastric pain that radiated to midline lower chest. The pain has waxed and waned since onset but never completely resolved and she became increasingly concerned when she found it was keeping her from sleeping. 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 Denies nausea, vomiting. Has not had these symptoms before Review of Systems Constitutional: reports: Reviewed and negative Cardiac: reports: Chest pain / pressure. denies: Palpitations, Pedal edema, Calf pain Respiratory: reports: Dyspnea (mild). denies: Cough GI: reports: Abdominal Pain. 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 - Present Medications Home Medications: Ambulatory Orders Medication Instructions Recorded Confirmed Cholecalciferol (Vitamin D3) 1,000 unit PO DAILY 06/15/19 08/22/21 [Vitamin D3] Pantoprazole [Protonix] 40 mg PO DAILY 06/15/19 08/22/21 Prazosin HCl 1 mg PO DAILY 06/15/19 08/22/21 buPROPion HCL [Bupropion HCl Sr] 300 mg PO DAILY 06/15/19 08/22/21 Albuterol Sulf [Ventolin Hfa 1 - 2 puffs INH Q4HR PRN 08/22/21 08/22/21 Inhaler] Apixaban [Eliquis] 5 mg ORAL BID 08/22/21 08/22/21 Atorvastatin Calcium 40 mg PO HS 08/22/21 08/22/21 Fluticasone [Flonase] 1 sprays DAVID DAILY 08/22/21 08/22/21 HYDROcod/ACETAM 5/325 [[place] 5/325] 1 - 2 tablet PO Q6H PRN #14 tablet 08/22/21 Lactobacillus Combination No.4 1 each PO DAILY 08/22/21 08/22/21 [Probiotic] Lisinopril [Zestril] 20 mg PO DAILY 08/22/21 08/22/21 Multivitamin [Theragran] 1 each PO DAILY 08/22/21 08/22/21 [place]-3/Dha/Epa/Fish Oil [Fish Oil 3 cap PO DAILY 08/22/21 08/22/21 1,000 mg Softgel] Tiotropium [place] [Spiriva] 1 puffs INH DAILY 08/22/21 08/22/21 HYDROcod/ACETAM 5/325 [[place] 5/325] 1 - 2 tablet PO Q6H PRN #14 tablet 01/13/22 Albuterol Sulfate [Proair Hfa 1 - 2 puffs INH QID PRN 07/12/22 07/12/22 Inhaler] Apixaban [Eliquis] 5 mg PO BID 07/12/22 07/12/22 Pantoprazole [Protonix] 40 mg PO DAILY 07/12/22 07/12/22 Pravastatin [Pravachol] 40 mg PO HS 07/12/22 07/12/22 Prazosin HCl [Minipress] 1 mg PO DAILY 07/12/22 07/12/22 buPROPion [Wellbutrin Sr] 200 mg PO BID 07/12/22 07/12/22 - Allergies Allergies/Adverse Reactions: Allergies Allergy/AdvReac Type Severity Reaction Status Date / Time shellfish derived Allergy Anaphylaxis Verified 01/13/22 09:53 PD ED PE NORMAL - Vitals Vital signs reviewed: Yes - General General: Alert and oriented X 3, No acute distress, Well developed/nourished - HEENT HEENT: Moist mucous membranes - Cardiac Cardiac: No murmur - Respiratory Respiratory: No respiratory distress, Clear bilaterally - Abdomen Abdomen: Soft, Non distended, Other (mild epigastric and RUQ TTP without rebound or guarding) - Back Back: No CVA TTP - Derm Derm: Normal color, Warm and dry - Extremities Extremities: No edema PD ED PE EXPANDED - Cardiac Cardiac: Irregularly irregular Results - Vitals Vitals: Oxygen O2 Source Room air - EKG (time done) No standard instances Rate: Rate (enter#) Rhythm: Atrial fibrillation [place]: Normal - Labs Labs: Laboratory Tests 07/12/22 07/12/22 07/12/22 05:09 05:09 05:09 WBC 11.8 H RBC 4.61 Hgb 14.2 Hct 42.8 MCV 92.8 MCH 30.8 MCHC 33.2 RDW 13.7 Plt Count 284 MPV 9.7 Neut # (Auto) 9.1 H Lymph # (Auto) 1.6 [place] # (Auto) 0.9 Eos # (Auto) 0.1 Baso # (Auto) 0.1 Absolute Nucleated RBC 0.00 Nucleated RBC % 0.0 Sodium 141 Potassium 4.3 Chloride 107 Carbon Dioxide 25 Anion Gap 9.0 BUN 33 H Creatinine 1.3 H Estimated GFR (MDRD) 40 L Glucose 122 H Calcium 9.3 Total Bilirubin 0.6 AST 17 ALT 19 Alkaline Phosphatase 49 Troponin I High Sens 8.9 B-Natriuretic Peptide Total Protein 6.3 L Albumin 3.6 Globulin 2.7 Albumin/Globulin Ratio 1.3 Lipase 149 H 07/12/22 05:09 WBC RBC Hgb Hct MCV MCH MCHC RDW Plt Count MPV Neut # (Auto) Lymph # (Auto) [place] # (Auto) Eos # (Auto) Baso # (Auto) Absolute Nucleated RBC Nucleated RBC % Sodium Potassium Chloride Carbon Dioxide Anion Gap BUN Creatinine Estimated GFR (MDRD) Glucose Calcium Total Bilirubin AST ALT Alkaline Phosphatase Troponin I High Sens B-Natriuretic Peptide 176 H Total Protein Albumin Globulin Albumin/Globulin Ratio Lipase - Rads (name of study) RUQ US Radiology: Prelim report reviewed, See rad report chest xray Radiology: Prelim report reviewed, See rad report PD MEDICAL DECISION MAKING - ED course Complexity details: reviewed results, re-evaluated patient, considered differential, d/w patient ED course: presents with epigastric pain / low chest pain. In gathering information on H+P, her chief complaint seems centered around epigastric pain rather than rudolph chest pain, but testing tonight undertaken to cover both aspects. No concerning findings on EKG (atrial fibrillation noted, not new), and blood tests have no concerning findings including a normal hs-cTn. Her lipase is mildly elevated at 149 but she denies any heavy/regular alcohol intake and her tenderness is mild, and considering WBC is only mildly elevated at 11.8, emergent imaging (specifically CT A/P) not warranted at this time. A RUQ US was performed, and no concerning findings on this study (hepatic steatosis but no GB disease). Cause of her symptoms is not apparent at this time. Results d/w patient, return precautions discussed, advised to follow up with primary care provider for reevaluation Departure - Departure Disposition: 01 Home, Self Care Clinical Impression: Epigastric abdominal pain Chest pain Qualifiers: Chest pain type: unspecified Qualified Code(s): R07.9 - Chest pain, unspecified Condition: Good Instructions: ED Abdominal Pain Female Non-Specific Abdominal Pain, ED Chest Pain Atypical Unkn Cause Comments: The cause of your symptoms is not apparent at this time. Your tests have no concerning findings, with only mild abnormalities that would not explain the symptoms. If your symptoms worsen, consider returning to the emergence department. Otherwise, follow up with your primary care provider for reevaluation. Discharge Date/Time: 07/12/22 08:10
[2022-07-12 05:16] LABS: BASOPHILS # (AUTO) 0.1 10^3/uL (0.0-0.1); BASOPHILS % (AUTO) 0.4 %; EOSINOPHILS # (AUTO) 0.1 10^3/uL (0.0-0.7); EOSINOPHILS % (AUTO) 0.9 %; HCT - HEMATOCRIT 42.8 % (37.0-47.0); HGB - HEMOGLOBIN 14.2 g/dL (12.0-16.0); LYMPHOCYTES # (AUTO) 1.6 10^3/uL (1.5-3.5); LYMPHOCYTES % (AUTO) 13.8 %; MEAN CORPUSCULAR HEMOGLOBIN 30.8 pg (27.0-31.0); MEAN CORPUSCULAR HGB CONC 33.2 g/dL (32.0-36.0); MEAN CORPUSCULAR VOLUME 92.8 fL (81.0-99.0); MEAN PLATELET VOLUME 9.7 fL (7.9-10.8); MONOCYTES # (AUTO) 0.9 10^3/uL (0.0-1.0); MONOCYTES % (AUTO) 7.9 %; NEUTROPHILS # (AUTO) 9.1 10^3/uL (1.5-6.6); NEUTROPHILS % (AUTO) 76.7 %; PLT - PLATELET COUNT 284 10^3/uL (130-450); RED BLOOD COUNT 4.61 10^6/uL (4.20-5.40); RED CELL DISTRIBUTION WIDTH 13.7 % (12.0-15.0); WHITE BLOOD COUNT 11.8 x10^3/uL (4.8-10.8)
[2022-07-12 05:29] LABS: ALBUMIN 3.6 g/dL (3.2-5.5); ALBUMIN/GLOBULIN RATIO 1.3 (1.0-2.2); BILIRUBIN,TOTAL 0.6 mg/dL (0.2-1.0); CALCIUM 9.3 mg/dL (8.5-10.3); CREATININE 1.3 mg/dL (0.4-1.0); POTASSIUM 4.3 mmol/L (3.5-5.0); TOTAL PROTEIN 6.3 g/dL (6.7-8.2)
[2022-07-12 07:03] VITALS: BP 165/82
--- NOTE | 2022-07-13 08:43 | Ultrasound Report ---
PROCEDURE: Abdomen Limited INDICATIONS: RUQ pain, tenderness TECHNIQUE: Real-time focused scanning was performed of the abdomen, with image documentation. COMPARISON: None FINDINGS: Liver is normal in size and measures 14.8 cm in length. Increased liver parenchymal echotexture is se en. No discrete hepatic lesion. Gallbladder is contracted. No gallstones or gross gallbladder wall thickening. No pericholecystic flu id or sonographic Osman's sign. There is no intrahepatic biliary ductal dilatation. Common bile that measures 3.2 mm in diameter and is within normal limits. Visualized portion of pancreas shows no gross abnormality. Right kidney measures 10.9 cm in length and 1.2 cm in renal cortical thickness. No hydronephrosis or nephrolithiasis. No solid-appearing renal lesion. IMPRESSION: Hepatic steatosis, no discrete hepatic lesion. Normal-appearing contracted gallbladder. No biliary ductal dilatation. No significant discrepancies from preliminary reading. Reviewed by: Dariel Guy MD on 07/13/2022 8:42 AM PDT Approved by: Dariel Guy MD on 07/13/2022 8:42 AM PDT Station ID: [id number]
== END 2022-07-12 08:10 | disposition home or self-care (01) ==
LOC: EDUNIT# → ED 04:38
DX: R07.9 Chest pain, unspecified (principal); R10.13 Epigastric pain
CPT/HCPCS: 36415; 80053; 83690; 83880; 84484; 85025; 93005; 99284

== ENCOUNTER 2022-08-04 12:12 | Outpatient (CLI) | payer MEDICARE, OTHER | END 2022-08-04 12:13 | disposition home or self-care (01) | LOC: LAB.S 12:12 | PROVIDERS: ATTEND Physician Assistant | DX: R30.0 Dysuria (principal) | CPT/HCPCS: 87086; 87181 ==

== ENCOUNTER 2023-06-21 21:21 | Outpatient (CLI) | payer MEDICARE, OTHER | END 2023-06-21 23:59 | disposition EMS.NT | LOC: EMS 21:21 | DX: M25.462 Effusion, left knee (principal); W01.0XXA Fall on same level from slipping, tripping and stumbling without subsequent striking against object, initial encounter; Y93.01 Activity, walking, marching and hiking ==

== ENCOUNTER 2023-06-28 09:59 | Outpatient (CLI) | payer MEDICARE, OTHER ==
--- NOTE | 2023-06-28 13:27 | XRAY Report ---
PROCEDURE: Knee 3 View LT INDICATIONS: CONTUSION OF LEFT KNEE TECHNIQUE: 3 views of the left knee(s) were acquired. COMPARISON: None. FINDINGS: Bones: No fractures or dislocations. No suspicious bony lesions. Soft tissues: No knee joint effusion. No suspicious soft tissue calcifications or masses. Soft tiss ue swelling of the visualized leg. Vascular calcifications are present. IMPRESSION: No acute osseous abnormality. If there is continued clinical concern for internal derangement, consid er further evaluation with MRI. Reviewed by: Consuelo Branltey MD on 06/28/2023 1:26 PM PDT Approved by: Consuelo Brantley MD on 06/28/2023 1:26 PM PDT Station ID: [id number]
== END 2023-06-28 23:59 | disposition home or self-care (01) ==
LOC: DI.S 09:59
PROVIDERS: ATTEND Physician Assistant
DX: S80.02XA Contusion of left knee, initial encounter (principal)

== ENCOUNTER → 2024-03-07 | Outpatient (CLI) | payer MEDICARE, OTHER | LOC: LAB.S 08:00 | PROVIDERS: ATTEND Registered Nurse | DX: R42 Dizziness and giddiness (principal) | CPT/HCPCS: 82962 ==

== ENCOUNTER 2024-03-10 10:19 | Outpatient (CLI) | payer MEDICARE, OTHER ==
[2024-03-10 14:44] LABS: BASOPHILS # (AUTO) 0.1 10^3/uL (0.0-0.1); BASOPHILS % (AUTO) 0.9 %; EOSINOPHILS # (AUTO) 0.2 10^3/uL (0.0-0.7); EOSINOPHILS % (AUTO) 2.5 %; HCT - HEMATOCRIT 44.3 % (37.0-47.0); HGB - HEMOGLOBIN 14.2 g/dL (12.0-16.0); LYMPHOCYTES # (AUTO) 1.6 10^3/uL (1.5-3.5); LYMPHOCYTES % (AUTO) 23.7 %; MEAN CORPUSCULAR HEMOGLOBIN 31.8 pg (27.0-31.0); MEAN CORPUSCULAR HGB CONC 32.1 g/dL (32.0-36.0); MEAN CORPUSCULAR VOLUME 99.3 fL (81.0-99.0); MEAN PLATELET VOLUME 10.2 fL (7.9-10.8); MONOCYTES # (AUTO) 0.5 10^3/uL (0.0-1.0); MONOCYTES % (AUTO) 7.8 %; NEUTROPHILS # (AUTO) 4.4 10^3/uL (1.5-6.6); PLT - PLATELET COUNT 257 10^3/uL (130-450); RED BLOOD COUNT 4.46 10^6/uL (4.20-5.40); RED CELL DISTRIBUTION WIDTH 13.7 % (12.0-15.0); WHITE BLOOD COUNT 6.8 x10^3/uL (4.8-10.8)
[2024-03-10 15:06] LABS: ALBUMIN 3.9 g/dL (3.2-5.5); ALBUMIN/GLOBULIN RATIO 1.7 (1.0-2.2); BILIRUBIN,TOTAL 0.5 mg/dL (0.2-1.0); CALCIUM 9.5 mg/dL (8.5-10.3); CREATININE 1.2 mg/dL (0.6-1.3); POTASSIUM 4.6 mmol/L (3.5-4.5); TOTAL PROTEIN 6.2 g/dL (6.4-8.9)
[2024-03-10 15:09] LABS: THYROID STIMULATING HORMONE 4.52 uIU/mL (0.34-5.60)
[2024-03-10 19:28] LABS: ESTIMATED AVERAGE GLUCOSE 128 mg/dL (70-100); HEMOGLOBIN A1c% 6.1 % (4.27-6.07)
== END 2024-03-10 10:20 | disposition home or self-care (01) ==
LOC: LAB.S 10:19
PROVIDERS: ATTEND Registered Nurse
DX: R42 Dizziness and giddiness (principal); R53.83 Other fatigue; E16.2 Hypoglycemia, unspecified
CPT/HCPCS: 36415; 80053; 83036; 84443; 85025

== ENCOUNTER 2024-03-11 08:02 | Emergency (ER) | payer MEDICARE, OTHER ==
[2024-03-11 08:57] LABS: BASOPHILS # (AUTO) 0.1 10^3/uL (0.0-0.1); EOSINOPHILS # (AUTO) 0.2 10^3/uL (0.0-0.7); EOSINOPHILS % (AUTO) 2.5 %; HCT - HEMATOCRIT 43.1 % (37.0-47.0); LYMPHOCYTES # (AUTO) 1.5 10^3/uL (1.5-3.5); LYMPHOCYTES % (AUTO) 21.6 %; MEAN CORPUSCULAR HEMOGLOBIN 31.8 pg (27.0-31.0); MEAN CORPUSCULAR HGB CONC 32.5 g/dL (32.0-36.0); MEAN PLATELET VOLUME 9.6 fL (7.9-10.8); MONOCYTES # (AUTO) 0.6 10^3/uL (0.0-1.0); MONOCYTES % (AUTO) 8.7 %; NEUTROPHILS # (AUTO) 4.6 10^3/uL (1.5-6.6); NEUTROPHILS % (AUTO) 65.9 %; PLT - PLATELET COUNT 243 10^3/uL (130-450); RED CELL DISTRIBUTION WIDTH 13.6 % (12.0-15.0); WHITE BLOOD COUNT 6.9 x10^3/uL (4.8-10.8)
[2024-03-11] MEDS ORDERED: iohexoL-300 100 ML VIAL ONE (09:04)
[2024-03-11 09:13] LABS: ALBUMIN 3.8 g/dL (3.2-5.5); ALBUMIN/GLOBULIN RATIO 1.7 (1.0-2.2); BILIRUBIN,TOTAL 0.5 mg/dL (0.2-1.0); CALCIUM 9.4 mg/dL (8.5-10.3); CREATININE 1.2 mg/dL (0.6-1.3); POTASSIUM 4.7 mmol/L (3.5-4.5); TOTAL PROTEIN 6.1 g/dL (6.4-8.9)
[2024-03-11 09:27] LABS: INR 1.3 (0.8-1.2); PT - PROTHROMBIN TIME 14.2 secs (9.9-12.6)
[2024-03-11 09:51] LABS: BILIRUBIN,URINE NEGATIVE (NEGATIVE); GLUCOSE, URINE (UA) NEGATIVE (NEGATIVE); KETONES,URINE (UA) NEGATIVE (NEGATIVE); LEUKOCYTE ESTERASE, URINE NEGATIVE (NEGATIVE); NITRITE,URINE NEGATIVE (NEGATIVE); OCCULT BLOOD,URINE NEGATIVE (NEGATIVE); PROTEIN,URINE NEGATIVE (NEGATIVE); UROBILINOGEN,URINE 0.2 (NORMAL) E.U./dL (NORMAL)
[2024-03-11 10:04] LABS: CLARITY,URINE CLEAR (CLEAR)
--- NOTE | 2024-03-11 10:11 | CT Report ---
PROCEDURE: Angio Head/Neck INDICATIONS: Trouble with balance and speech; on eliquis TECHNIQUE: After the administration of intravenous contrast, 1 mm thick sections acquired from the aortic arch t hrough the [place]. 3-dimensional ilougat-htrlibrhd-jsnmpesfjw (MIP) and/or volume renderin g reformats were acquired of the central intracranial vasculature and neck separately. For radiation dose reduction, the following was used: automated exposure control, adjustment of mA and/or kV acco rding to patient size. CONTRAST: Omni 300 80ml COMPARISON: None. FINDINGS: Image quality: Diagnostic. HEAD CT: CSF Spaces: Basal cisterns are patent. No extra-axial fluid collections. Ventricles are normal in size and shape. Brain: No significant abnormality is seen for scanning technique. Skull and face: Calvarium and visualized facial bones appear intact, without suspicious lesions. Sinuses: Visualized sinuses and mastoids are clear. HEAD CT ANGIOGRAPHY: Anterior circulation: Intracranial internal carotid arteries are normal in size and flow. The flow within the paired anterior cerebral arteries is normal and symmetric. The flow within the middle cer ebral arteries is normal and symmetric. The anterior communicating artery is seen. No aneurysms are seen. Posterior circulation: The right vertebral artery is diffusely diminutive in either and uncinate hyp ertrophy or occludes distally. This may be a chronic finding if it occludes distally. The left verteb ral artery is dominant and widely patent. Because rise to a normal caliber basilar artery. Flow withi n the posterior cerebral arteries is normal and symmetric. No aneurysms are seen. NECK CT ANGIOGRAPHY: Carotid system: The great vessels demonstrate a conventional anatomy as they arise from the aortic a rch. The origins of the common carotid arteries appear patent. The common carotid arteries demonstr ate normal caliber and courses. The bifurcation regions are both widely patent. Mild less than 50% n onflow limiting proximal left internal carotid artery stenosis. Right internal carotid artery is wide ly patent. Posterior circulation: The right vertebral artery is diffusely diminutive in either and un cinate hypertrophy or occludes distally. This may be a chronic finding if it occludes distally. The l eft vertebral artery is dominant and widely patent. Because rise to a normal caliber basilar artery. Soft tissues: Visualized neck soft tissues demonstrate no suspicious abnormalities. Bones: No suspicious bony lesions. Visualized cervical spine appears normally aligned. IMPRESSION: 1. Right vertebral artery is diffusely diminutive in diameter and measured cedric or occludes distally, most likely a chronic finding if it is occluded distally. 2. Otherwise unremarkable CTA head. 3. Mild, less than 50% proximal left internal carotid artery stenosis. Comment: It is noted that the patient is scheduled for brain MRI. The estimate of stenosis included in the report of the imaging study was calculated using the NASCET method Reviewed by: John Ferrera MD on 03/11/2024 10:10 AM PDT Approved by: John Ferrera MD on 03/11/2024 10:10 AM PDT Station ID: [id number]
--- NOTE | 2024-03-11 10:44 | ED Physician Documentation ---
PD HPI FOCAL NEURO - Stated complaint Stated Complaint: SPEECH DIFF - Chief complaint Chief Complaint: Neuro - History obtained from History obtained from: Patient - Additional information Additional information: Patient is a 78-year-old female with a history of A-fib on Eliquis presenting for evaluation of recent issues with balance as well as difficulty with speech over the weekend. Patient states that last week she felt a gradual worsening of issues ambulating and felt like she was off balance. She saw her PCP, Dr. Guerrero on Sunday who evaluated her. Labs were ordered. Over the weekend she had a period where she felt like she was having trouble getting words out on Sunday. She again saw her PCP on Sunday who reassured her that labs were without significant findings but recommended she come to the ER for evaluation. She did not want to come yesterday. She has felt back to normal for the past day and denies any symptoms here today.No prior history of strokes. Review of Systems Constitutional: denies: Fever Cardiac: denies: Chest pain / pressure Respiratory: denies: Dyspnea GI: denies: Abdominal Pain Neurologic: reports: Difficulty speaking. denies: Headache PD PAST MEDICAL HISTORY - Past Medical History Cardiovascular: High cholesterol, Atrial fibrillation Respiratory: Sleep apnea Neuro: None Endocrine/Autoimmune: None GI: GERD NURSE COLLEGE: None : None HEENT: None Psych: Depression Musculoskeletal: Other Derm: None - Past Surgical History Past Surgical History: Yes General: Appendectomy Ortho: Hip replacement /NURSE COLLEGE: Hysterectomy - Present Medications Home Medications: Ambulatory Orders Medication Instructions Recorded Confirmed Cholecalciferol (Vitamin D3) 1,000 unit PO DAILY 06/15/19 03/11/24 [Vitamin D3] Pantoprazole [Protonix] 40 mg PO DAILY 06/15/19 03/11/24 Prazosin HCl 1 mg PO DAILY 06/15/19 03/11/24 buPROPion HCL [Bupropion HCl Sr] 300 mg PO DAILY 06/15/19 03/11/24 Albuterol Sulf [Ventolin Hfa 1 - 2 puffs INH Q4HR PRN 08/22/21 03/11/24 Inhaler] Apixaban [Eliquis] 5 mg ORAL BID 08/22/21 03/11/24 Atorvastatin Calcium 40 mg PO HS 08/22/21 03/11/24 Fluticasone [Flonase] 1 sprays DAVID DAILY 08/22/21 03/11/24 Lactobacillus Combination No.4 1 each PO DAILY 08/22/21 03/11/24 [Probiotic] Lisinopril [Zestril] 20 mg PO DAILY 08/22/21 03/11/24 Multivitamin [Theragran] 1 each PO DAILY 08/22/21 03/11/24 [place]-3/Dha/Epa/Fish Oil [Fish Oil 3 cap PO DAILY 08/22/21 03/11/24 1,000 mg Softgel] Tiotropium [place] [Spiriva] 1 puffs INH DAILY 08/22/21 03/11/24 Albuterol Sulfate [Proair Hfa 1 - 2 puffs INH QID PRN 07/12/22 03/11/24 Inhaler] Apixaban [Eliquis] 5 mg PO BID 07/12/22 03/11/24 Pantoprazole [Protonix] 40 mg PO DAILY 07/12/22 03/11/24 Pravastatin [Pravachol] 40 mg PO HS 07/12/22 03/11/24 Prazosin HCl [Minipress] 1 mg PO DAILY 07/12/22 03/11/24 buPROPion [Wellbutrin Sr] 200 mg PO BID 07/12/22 03/11/24 - Allergies Allergies/Adverse Reactions: Allergies Allergy/AdvReac Type Severity Reaction Status Date / Time shellfish derived Allergy Anaphylaxis Verified 03/11/24 08:24 - Social History Does the pt smoke?: No Smoking Status: Never smoker Does the pt drink ETOH?: No Does the pt have substance abuse?: No - Immunizations Immunizations are current?: Yes - POLST Patient has POLST: No PD ED PE NORMAL - General General: Alert and oriented X 3, No acute distress, Well developed/nourished - HEENT HEENT: Atraumatic, PERRL, EOMI - Neck Neck: Supple, no meningeal sign - Cardiac Cardiac: Other (Irregularly irregular, normal rate) - Respiratory Respiratory: No respiratory distress, Clear bilaterally - Abdomen Abdomen: Normal bowel sounds, Soft, Non tender, Non distended - Derm Derm: Warm and dry - Extremities Extremities: No deformity - Neuro Neuro: Alert and oriented X 3, 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, No motor deficit, No sensory deficit, Normal speech, Other (Normal finger-nose bilaterally, normal unassisted gait) NIHSS - Level of Consciousness Level of consciousness: (0) Alert, Keenly responsive LOC Questions: (0) Answers both Q's correct LOC Commands: (0) Performs both correctly - Gaze Best Gaze: (0) Normal - Visual Visual: (0) No loss - Facial Palsy Facial Palsy: (0) Normal, symmetrical movement - Motor Arms (both separate) Motor Arm (right): (0) No drift Motor Arm (left): (0) No drift - Motor Legs (both separate) Motor Leg (right): (0) No drift Motor Leg (left): (0) No drift - Limb Ataxia Limb Ataxia: (0) Absent - Sensory Sensory: (0) Normal - Best Language Best Language: (0) No aphasia - Dysarthria Dysarthria: (0) Normal - Extinction and Inattention (formally neg Extinction and inattention: (0) No abnormality - Total Score/Results Total Score/Result: 0 Results - Vitals Vitals: Vital Signs - 24 hr 03/11/24 03/11/24 03/11/24 08:17 10:23 12:00 Temperature 36.7 C 36.5 C 36.1 C L Heart Rate 62 51 L 61 Respiratory 18 19 16 Rate Blood Pressure 147/68 H 155/81 H 185/84 H O2 Saturation 97 98 98 03/11/24 12:37 Temperature 37.0 C Heart Rate 61 Respiratory 16 Rate Blood Pressure 177/83 H O2 Saturation 98 Oxygen O2 Source Room air - EKG (time done) 0846 EKG releavant findings:: EKG personally interpreted by author of this note. Relevant findings are: Rate 49, atrial flutter, no STEMI, QTc 428 - Labs Labs: Laboratory Tests 03/11/24 03/11/24 03/11/24 08:41 08:41 08:41 WBC 6.9 RBC 4.40 Hgb 14.0 Hct 43.1 MCV 98.0 MCH 31.8 H MCHC 32.5 RDW 13.6 Plt Count 243 MPV 9.6 Neut # (Auto) 4.6 Lymph # (Auto) 1.5 [place] # (Auto) 0.6 Eos # (Auto) 0.2 Baso # (Auto) 0.1 Absolute Nucleated RBC 0.00 Nucleated RBC % 0.0 PT 14.2 H INR 1.3 H Sodium 137 Potassium 4.7 H Chloride 105 Carbon Dioxide 28 Anion Gap 4.0 L BUN 27 H Creatinine 1.2 Estimated GFR (MDRD) 44 L Glucose 107 H Calcium 9.4 Total Bilirubin 0.5 AST 12 ALT 15 Alkaline Phosphatase 54 Total Protein 6.1 L Albumin 3.8 Globulin 2.3 Albumin/Globulin Ratio 1.7 Lipase 11 Urine Color Urine Clarity Urine pH Ur Specific [place] Urine Protein Urine Glucose (UA) Urine Ketones Urine Occult Blood Urine Nitrite Urine Bilirubin Urine Urobilinogen Ur Leukocyte Esterase Ur Microscopic Review Urine Culture Comments 03/11/24 09:44 WBC RBC Hgb Hct MCV MCH MCHC RDW Plt Count MPV Neut # (Auto) Lymph # (Auto) [place] # (Auto) Eos # (Auto) Baso # (Auto) Absolute Nucleated RBC Nucleated RBC % PT INR Sodium Potassium Chloride Carbon Dioxide Anion Gap BUN Creatinine Estimated GFR (MDRD) Glucose Calcium Total Bilirubin AST ALT Alkaline Phosphatase Total Protein Albumin Globulin Albumin/Globulin Ratio Lipase Urine Color LT. YELLOW Urine Clarity CLEAR Urine pH 7.0 Ur Specific [place] <=1.005 Urine Protein NEGATIVE Urine Glucose (UA) NEGATIVE Urine Ketones NEGATIVE Urine Occult Blood NEGATIVE Urine Nitrite NEGATIVE Urine Bilirubin NEGATIVE Urine Urobilinogen 0.2 (NORMAL) Ur Leukocyte Esterase NEGATIVE Ur Microscopic Review NOT INDICATED Urine Culture Comments NOT INDICATED PD Medical Decision Making - ED course Complexity details: reviewed results, re-evaluated patient, d/w patient ED course: Patient presenting for evaluation of neurologic symptoms over the past week. Last week she reported having issues with balance and feeling unsteady on her feet. Over the weekend she had a period where she was having trouble with her speech. The symptoms of all resolved by Sunday and she has seen her PCP twice including having outpatient labs but was directed to the ER for further evaluation. She remains without symptoms here and an NIH of 0. She is already anticoagulated on Eliquis. CBC, chemistries without any significant changes from prior labs. CT angio of the head and neck was obtained. 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 MRI brain was obtained without signs of a stroke. Symptoms could be related to TIA. Patient was counseled to have close follow-up with her primary care provider. 1131 - D/W Telestroke (Dr. Faustin) regarding CTA. 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 Departure - Departure Disposition: 01 Home, Self Care Clinical Impression: TIA (transient ischemic attack) Condition: Stable Instructions: ED Transient Ischemic Attack Comments: Your MRI does not show signs of a stroke today. Your symptoms could have been related to a mini stroke called a transient ischemic attack. Please continue with the medications that you are on and I would recommend continued follow-up with your primary care provider. There was a chronic finding seen on the CT angiogram which looks at the blood vessels in your head and I did review this with our telestroke doctor who does not feel there is any other intervention needed regarding this. Forms: PCP List Discharge Date/Time: 03/11/24 12:48
[2024-03-11] MEDS: iohexoL-300 100 ML VIAL IVP ONE (11:05)
--- NOTE | 2024-03-11 12:15 | MRI Report ---
PROCEDURE: Brain WO INDICATIONS: Difficulties with speech and balance TECHNIQUE: Noncontrast axial T1 spin echo, axial T2 fast spin echo, sagittal and axial FLAIR, coronal T2 fast sp in echo, axial gradient echo, axial diffusion and ADC through the brain. COMPARISON: None. FINDINGS: Image quality: Excellent. CSF Spaces: Basal cisterns are patent. No extra-axial fluid collections. Ventricles are normal in size and shape. Brain: No intracranial masses or hemorrhage. Barnes/white matter interface is normal. Brainstem appe ars normal. Diffusion-weighted images demonstrate no acute ischemic insult. No chronic ischemic ins ults. Normal intravascular flow voids are present. There is age-related volume loss and minimal sma ll vessel ischemic change. Skull and face: Calvarium has normal marrow signal. Orbits appear normal. Sinuses: Sinuses and mastoids are clear. IMPRESSION: Normal brain MRI for patient age. No acute intracranial process. Reviewed by: John Ferrera MD on 03/11/2024 12:13 PM PDT Approved by: John Ferrera MD on 03/11/2024 12:13 PM PDT Station ID: [id number]
[2024-03-11 12:27] VITALS: O2SAT 98
[2024-03-11 12:47] VITALS: BP 177/83
== END 2024-03-11 12:48 | disposition home or self-care (01) ==
LOC: ED 08:02
DX: G45.9 Transient cerebral ischemic attack, unspecified (principal); I48.91 Unspecified atrial fibrillation; Z79.01 Long term (current) use of anticoagulants; E78.00 Pure hypercholesterolemia, unspecified; G47.30 Sleep apnea, unspecified; K21.9 Gastro-esophageal reflux disease without esophagitis; F32.A Depression, unspecified; Z79.899 Other long term (current) drug therapy
CPT/HCPCS: 36415; 70496; 70498; 70551; 80053; 81003; 83690; 85025; 85610; 93005; 99284; Q9967; 81001; 87086